=== PATIENT | female | born 1970 | race Caucasian/White ===

== ENCOUNTER → 2016-10-08 | Outpatient (CLI) | payer BC, OTHER ==
[2016-10-08 20:15] LABS: COMPLEMENT C4 32.2 MG/DL (10-40); IMMUNOGLOBULIN E 28.3 IU/ML (<100); IMMUNOGLOBULIN M 61.9 MG/DL (40-230)
[2016-10-12 00:07] LABS: ALPHA 1 ANTITRYPSIN 169 mg/dL (90-200); D001-IgE D pteronyssinus 4.51 kU/L (Class IV); E001-IgE Cat Epith/Dander < 0.10 kU/L (Class 0); E005-IgE Dog Dander < 0.10 kU/L (Class 0); F002-IgE Milk < 0.10 kU/L (Class 0); F004-IgE Wheat < 0.10 kU/L (Class 0); F013-IgE Peanut < 0.10 kU/L (Class 0); F014-IgE Soybean < 0.10 kU/L (Class 0); F026-IgE Pork < 0.10 kU/L (Class 0); F027-IgE Beef < 0.10 kU/L (Class 0); F245-IgE Egg, Whole < 0.10 kU/L (Class 0); FX02-IgE Food Mix (Sea Foods) Negative (.); G002-IgE Bermuda Grass < 0.10 kU/L (Class 0); G008-IgE Kentucky Bluegrass 0.88 kU/L (Class II); M001-IgE Penicillium chrysogen < 0.10 kU/L (Class 0); M002 IgE Cladosporium herbaru < 0.10 kU/L (Class 0); M003 IgE Aspergillus fumigatu < 0.10 kU/L (Class 0); M006-IgE Alternaria alternata < 0.10 kU/L (Class 0); T001-IgE Maple/Box Elder < 0.10 kU/L (Class 0); T003-IgE Common Silver Birch 0.25 kU/L (Class 0/I); T007-IgE Oak, White < 0.10 kU/L (Class 0); T008-IgE Elm, American < 0.10 kU/L (Class 0); T015-IgE Ash, White 0.11 kU/L (Class 0/I); T041-IgE Hickory, White < 0.10 kU/L (Class 0); W001-IgE Ragweed, Short 0.22 kU/L (Class 0/I); W014-IgE Pigweed, Rough < 0.10 kU/L (Class 0); W018-IgE Sheep Sorrel < 0.10 kU/L (Class 0)
== END ==
LOC: M LAB 16:25
PROVIDERS: ATTEND Allergy & Immunology
DX: J30.81 Allergic rhinitis due to animal (cat) (dog) hair and dander (principal)

== ENCOUNTER → 2019-08-10 | Outpatient (CLI) | payer BC, OTHER ==
--- NOTE | 2019-08-10 14:23 | REP ---
CT paranasal sinuses: 08/10/2019. Indication: Sinusitis. Comparison: None. Technique: Axial images of the paranasal sinuses were performed with coronal reconstructions provided. Findings: There are no air-fluid levels or frothy secretions within the paranasal sinuses. No significant periosteal mucosal thickening is present. The mastoid air cells are clear. The TMJs are unremarkable. There is no significant deviation of the nasal septum. Contra bullosa of the right middle nasal turbinate is noted. The sinonasal passageways are patent. Impression: No significant paranasal sinus mucosal disease by CT evaluation. Electronically Signed by Zeke Jeffery DO 08/10/2019 02:14 P
== END ==
LOC: M RAD 10:54
PROVIDERS: ATTEND Otolaryngology
DX: J32.0 Chronic maxillary sinusitis (principal)

== ENCOUNTER → 2022-02-28 | Outpatient (REF) | payer OTHER, BC | LOC: M LAB REF 08:47 | PROVIDERS: ATTEND Physician Assistant | DX: N39.0 Urinary tract infection, site not specified (principal) ==